=== PATIENT | male | born 1955 | race Caucasian/White ===

== ENCOUNTER → 2017-04-11 | Outpatient (CLI) | payer BC ==
[~2017-04-11] MED LIST: Co Q10 PO; LORA-741 PO; LPR50 PO; MULT-506 PO; NUTR1CAP PO; SIMV20TA5 PO; XRL10 PO
--- NOTE | 2017-04-11 09:20 | DIAGNOSTIC IMAGING REPORT ---
KUB CLINICAL HISTORY: 62 years-old Male presenting with N20.0 [id number], history of renal stones, follow-up. TECHNIQUE: Single supine view of the abdomen was obtained. COMPARISON: 03/17/2015. FINDINGS: Allowing for the presence of gas and stool, no renal calculi. No calcifications along the courses of the ureters. Single left hemipelvis phlebolith unchanged. Nonobstructive bowel gas pattern. No evidence of free intraperitoneal gas, pneumatosis, or portal venous gas. Osseous structures normal. IMPRESSION: 1. No radiographic evidence of nephrolithiasis. Electronically signed by: Yogesh Bailey M.D. 04/11/2017 9:19 AM Dictated Date/Time: 04/11/2017 9:18 AM
== END | disposition home or self-care (01) ==
LOC: C.LAB 08:33
PROVIDERS: ATTEND Urology
DX: N20.0 Calculus of kidney (principal); N40.3 Nodular prostate with lower urinary tract symptoms

== ENCOUNTER 2024-07-30 08:10 | Observation (INO) ==
--- NOTE | 2024-07-03 09:10 | PAT Medication Instructions ---
Medication Instructions Date of Service July 03, 2024 Home Medications Profocus 1 tab PO QAM Prostate Plus 1 tab PO QAM cholecalciferol (vitamin D3) 25 mcg (1,000 unit) capsule (Vitamin D3) 25 mcg PO BID coQ10 (ubiquinol) 200 mg capsule 200 mg PO QPM lisinopril 20 mg-hydrochlorothiazide 12.5 mg tablet 1 tab PO QAM metoprolol succinate 25 mg tablet,extended release 24 hr 25 mg PO QPM metoprolol succinate 50 mg capsule sprinkle, ext. release 24 hr 50 mg PO QAM rivaroxaban 20 mg tablet (Xarelto) 20 mg PO PM simvastatin 20 mg tablet 20 mg PO PM vitamin A-vitamin C-vit E-min tablet 1 tab PO QAM vitamin B complex 1 cap PO QAM biotin 10,000 mcg capsule 10,000 mcg PO BID docosahexaenoic acid (dha)-epa capsule 1 cap PO BID melatonin 5 mg tablet 5 mg PO HS PRN ASK your prescriber and surgeon rivaroxaban 20 mg tablet (Xarelto) 20 mg PO PM(in order for spinal or epidural anesthesia, Xarelto needs to be stopped 72 hours/3 days before surgery. Please check if okay with doctor that prescribes this to you) STOP taking 2 weeks before surgery (or as soon as possible if surgery is within 2 weeks) Profocus 1 tab PO QAM Prostate Plus 1 tab PO QAM coQ10 (ubiquinol) 200 mg capsule 200 mg PO QPM vitamin A-vitamin C-vit E-min tablet 1 tab PO QAM biotin 10,000 mcg capsule 10,000 mcg PO BID docosahexaenoic acid (dha)-epa capsule 1 cap PO BID DO NOT take the morning of surgery cholecalciferol (vitamin D3) 25 mcg (1,000 unit) capsule (Vitamin D3) 25 mcg PO BID lisinopril 20 mg-hydrochlorothiazide 12.5 mg tablet 1 tab PO QAM vitamin B complex 1 cap PO QAM Take morning of surgery With a small sip of water, OTHERWISE NOTHING TO EAT OR DRINK AFTER MIDNIGHT: metoprolol succinate 50 mg capsule sprinkle, ext. release 24 hr 50 mg PO QAM Take evening before surgery cholecalciferol (vitamin D3) 25 mcg (1,000 unit) capsule (Vitamin D3) 25 mcg PO BID metoprolol succinate 25 mg tablet,extended release 24 hr 25 mg PO QPM simvastatin 20 mg tablet 20 mg PO PM melatonin 5 mg tablet 5 mg PO HS PRN(if needed) Other Notes If you have any questions please call us at [phone] or [phone] or [phone] or [phone]
--- NOTE | 2024-07-10 09:11 | Anesthesiology Consultation ---
Date of Service July 10, 2024 Assessment & Plan (1) Encounter for pre-operative examination: - Infectious disease screening: Per assessment on 07/10/24- No known recent infectious disease contacts or current infectious disease symptoms. - Outpatient joint assessment: Pt currently scheduled for inpatient pathway. If surgeon requests review for outpatient joint pathway, patient is not recommmended candidate for outpatient joint program from anesthesia standpoint based on available information. - Cardiology visit (06/25/24): "Preoperative Cardiovascular Risk Assessment.. Scheduled for right knee total replacement on July 30, 2023, with Dr. Brandt at [facility]. Hypertension, atrial fibrillation, and dyslipidemia are well- controlled. Recent stress test and echocardiogram were normal. No current chest pain, dyspnea, palpitations, dizziness, or peripheral edema. Discussed the risk of atrial fibrillation during surgery and the importance of taking metoprolol on the day of surgery. Informed consent obtained regarding holding Xarelto for three days before surgery and resuming postoperatively.. Hold Xarelto for three days before surgery.. Continue metoprolol, take the morning of the procedure.. Atrial Fibrillation.. No recent episodes. On metoprolol and Xarelto for rate control and anticoagulation. Discussed the risk of atrial fibrillation during surgery and the importance of taking metoprolol on the day of surgery.. Continue metoprolol.. Hold Xarelto for three days before surgery" - PCP visit (06/30/24): "Has upcoming knee surgery with Dr Brandt at [facility].. Has pre op visit at [facility] in early July. Already did cardiac pre op.. Feels he has good plan for post op/recovery period.. Reviewed labs from last month - overall they look good. Prediabetes has improved to 5.8%. Following with urology for kidney stone which has resolved and BPH symptoms have improved.. Stools are regular, not dark or tarry.. Denies any cardiopulmonary symptoms" Chart Review Chart Review: Acceptable Risk for Surgery and Patient seen in Pre Admission Nguyen idaliag Teaching & Discussion Pre-Anesthesia Teaching/Discussion Notes: Instructed NPO after midnight before surgery,except medications with 15 cc of water. Medication instructions provided according to the PAT guidelines. History Surgery Operation Date: 07/30/24 08:50 Proposed Procedures p Right Total Knee Arthroplasty - Chauncey Brandt MD Height/Weight Height: 5 ft 11 in Weight: 105.1 kg Allergies Allergy/AdvReac Type Severity Reaction Status Date / Time Penicillins Allergy Unknown As child, Verified 07/10/24 09:17 possible Medications Home Medications Medication Instructions Recorded Confirmed Last Taken Profocus 1 tab PO QAM 07/24/22 07/02/24 09/24/22 Prostate Plus 1 tab PO QAM 07/24/22 07/02/24 09/24/22 cholecalciferol (vitamin D3) 25 25 mcg PO BID 07/24/22 07/02/24 09/24/22 mcg (1,000 unit) capsule (Vitamin D3) coQ10 (ubiquinol) 200 mg capsule 200 mg PO QPM 07/24/22 07/02/24 09/24/22 lisinopril 20 1 tab PO QAM 07/24/22 07/02/24 09/24/22 mg-hydrochlorothiazide 12.5 mg tablet metoprolol succinate 25 mg 25 mg PO QPM 07/24/22 07/02/24 09/24/22 tablet,extended release 24 hr metoprolol succinate 50 mg capsule 50 mg PO QAM 07/24/22 07/02/24 09/25/22 sprinkle, ext. release 24 hr rivaroxaban 20 mg tablet (Xarelto) 20 mg PO PM 07/24/22 07/02/24 09/24/22 simvastatin 20 mg tablet 20 mg PO PM 07/24/22 07/02/24 09/24/22 vitamin A-vitamin C-vit E-min 1 tab PO QAM 07/24/22 07/02/24 09/24/22 tablet vitamin B complex 1 cap PO QAM 07/24/22 07/02/24 09/24/22 biotin 10,000 mcg capsule 10,000 mcg PO BID 07/02/24 07/02/24 Unknown docosahexaenoic acid (dha)-epa 1 cap PO BID 07/02/24 07/02/24 Unknown capsule melatonin 5 mg tablet 5 mg PO HS PRN Sleep 07/02/24 07/02/24 Unknown Cranberry Gummy 1 gummy PO DAILY 07/10/24 Unknown Probiotic 1 cap PO BID 07/10/24 07/10/24 Unknown Past Medical History Medical History Atrial fibrillation Follows with Dr. Kopinski Taking Xarelto BPH (benign prostatic hyperplasia) Degenerative arthritis of knee, bilateral History of kidney stones History of migraine HLD (hyperlipidemia) HTN (hypertension) Osteoarthritis Scoliosis Exercise / Class Metabolic Activity II 4-5 Yardwork/Stairs/Walk up hill (one FS: No CP, no SOB) Past Family History Family History Other No family history of adverse response to anesthesia Past Surgical History Surgical History History of cataract surgery R/L History of colonoscopy History of cystoscopy with stone extraction History of removal of cyst History of wisdom tooth extraction Past Anesthesia History No Hx of Anesthesia Complications and No Family Hx of Anesthesia Complications History of PONV No Hx of PONV and Hx of Motion Sickness Social History Smoking Status: Former smoker Do You Dip or Chew Tobacco: No Smoking End Date: Quit 1970s Hx Alcohol Use: No Hx Substance Use: No substance use type: does not use Review of Systems Patient denies chest pain, shortness of breath, dyspnea on exertion, fever, chills, cough, wheezing, palpitations. Physical Exam Vital Signs BP 146/85 P 55 TEMP 98.2 SP02 96%RA RESP 18 Physical Full cervical extension range of motion. Full TMJ range of motion. TMD > 3.5 finger breaths Mallampati Score II Dentition: intact, current upper implants (final implant to be done 07/27 prior to surgery- dentist aware of surgery timing and gave approval, patient advised to make surgeon's office aware as well) Lungs: clear throughout to auscultation Cardiac: regular rate and rhythm, no murmurs noted Spine: normal Carotid arteries: negative bruit Extremities: no LE edema Lab Results Anesthesia Preop Results Results Anesthesia Widget: WBC 6.82 K/ul (4.8-10.8) 07/10/24 Hgb 14.9 g/dl (14.0-18.0) 07/10/24 Hct 44.1 % (42.0-52.0) 07/10/24 Plt 173 K/uL (130-400) 07/10/24 Na 139 mmol/L (136-145) 07/10/24 K 3.6 mmol/L (3.5-5.1) 07/10/24 Cl 105 mmol/L (98-107) 07/10/24 CO2 29 mmol/L (21-32) 07/10/24 BUN 14 mg/dl (6-23) 07/10/24 Creat 0.76 mg/dl (0.6-1.4) 07/10/24 Glucose Level 103 mg/dl (70-99(Fasting)) H 07/10/24 PT 13.0 Seconds (9.0-12.0) H 07/10/24 PTT 42 Seconds (21-31) H 07/10/24 INR 1.2 (0.9-1.1) H 07/10/24 Blood Type O Positive 07/10/24 Antibody Screen NEGATIVE 07/10/24 Testing Laboratory Results *Elevated coags- patient taking Xarelto* Electrocardiogram Date: 06/25/24 SB at 58bpm. NS TWA. Chest X-Ray Date: 07/13/24 FINDINGS: No lines and tubes are seen. The cardiomediastinal silhouette is normal. The lungs are clear. No evidence of pleural effusion or pneumothorax. IMPRESSION: No acute chest disease. Echocardiogram Date: 02/13/23 LVEF 60-64%. LV wall motion is normal. Mildly increased concentric LV wall thickness. Mild LAE. Grade 1 diastolic dysfunction. No significant valvular disease. Stress Test Date: 11/08/23 Type: nuclear Gated SPECT imaging reveals normal myocardial thickening and wall motion. LVEF greater than 65%. Lexiscan nuclear cardiac stress test negative for ischemia.
--- NOTE | 2024-07-25 10:09 | History & Physical Report ---
Date of Service July 25, 2024 Assessment & Plan (1) Degenerative arthritis of knee, bilateral: 69-year-old male with advanced bilateral knee arthritis right side more symptomatic than left. Is failed conservative care and like to go ahead and proceed with knee replacement on the right side. He was planning on having this done at [facility] but they have canceled and not rescheduled. Plan: We will proceed with a right knee Medical fever explained and he understands. Informed consent obtained. Will need to hold his Xarelto 3 days preop. He is planned to be discharged to home. He does live by himself but will have a friend or family member stay with him. Will use Xarelto for DVT prophylaxis. (2) Dyslipidemia: (3) Hypertension: History of Present Illness Chief Complaint: . Bilateral knee pain discomfort right side greater than the left. Primary Care Provider: Bakari Jones DO . 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 Got a long history of bilateral knee pain discomfort of it has been managed by the [facility] over the years. He was planning to have his knee fixed by Dr. Ann in [place] but apparently he had to leave [facility] for some family issues. Has had extensive conservative treatment including injections which have become less successful. He is ready to proceed with right knee replacement. Allergies Allergy/AdvReac Type Severity Reaction Status Date / Time Penicillins Allergy Unknown As child, Verified 07/10/24 09:17 possible Home Medications Medication Instructions Recorded Confirmed Type Profocus 1 tab PO QAM 07/24/22 07/02/24 History Prostate Plus 1 tab PO QAM 07/24/22 07/02/24 History cholecalciferol (vitamin D3) 25 25 mcg PO BID 07/24/22 07/02/24 History mcg (1,000 unit) capsule (Vitamin D3) coQ10 (ubiquinol) 200 mg capsule 200 mg PO QPM 07/24/22 07/02/24 History lisinopril 20 1 tab PO QAM 07/24/22 07/02/24 History mg-hydrochlorothiazide 12.5 mg tablet metoprolol succinate 25 mg 25 mg PO QPM 07/24/22 07/02/24 History tablet,extended release 24 hr metoprolol succinate 50 mg capsule 50 mg PO QAM 07/24/22 07/02/24 History sprinkle, ext. release 24 hr rivaroxaban 20 mg tablet (Xarelto) 20 mg PO PM 07/24/22 07/02/24 History simvastatin 20 mg tablet 20 mg PO PM 07/24/22 07/02/24 History vitamin A-vitamin C-vit E-min 1 tab PO QAM 07/24/22 07/02/24 History tablet vitamin B complex 1 cap PO QAM 07/24/22 07/02/24 History biotin 10,000 mcg capsule 10,000 mcg PO BID 07/02/24 07/02/24 History docosahexaenoic acid (dha)-epa 1 cap PO BID 07/02/24 07/02/24 History capsule melatonin 5 mg tablet 5 mg PO HS PRN Sleep 07/02/24 07/02/24 History Cranberry Gummy 1 gummy PO DAILY 07/10/24 History Probiotic 1 cap PO BID 07/10/24 07/10/24 History Past Med/Surg History Problem List Degenerative arthritis of knee, bilateral Encounter for pre-operative examination Hypokalemia (Acute) Benign prostatic hyperplasia (Chronic) Dyslipidemia (Chronic) Hypertension (Chronic) Medical History Degenerative arthritis of knee, bilateral BPH (benign prostatic hyperplasia) Osteoarthritis Scoliosis History of kidney stones History of migraine HLD (hyperlipidemia) HTN (hypertension) Atrial fibrillation Follows with Dr. Merritt Taking Xarelto Surgical History History of cataract surgery R/L History of wisdom tooth extraction History of removal of cyst History of cystoscopy with stone extraction History of colonoscopy Family History Other No family history of adverse response to anesthesia Social History Smoking Status: Former smoker Tobacco Type: Cigarettes Second Hand Exposure: Yes (hx); Do You Dip or Chew Tobacco: No; Hx Alcohol Use: No Hx Substance Use: No Preferred Language: Kazakh Communication Ability: Effective Parachute Accessories Attacher Required: No Beliefs That Will Affect Care: None Current Living Situation: Alone Feels Safe at Home: Yes Assistive Devices: None Review of Systems All systems reviewed & are unremarkable except as noted in HPI & below. Physical Exam . Physical examination was a pleasant middle-age male. Exam pretty good health. Examination both [id number] patient ambulates independently. Examination of the right knee reveals some bony prophy. Good varus alignment to his knee. Small knee effusion. He is tender over the medial joint line. Range of motion about 5-1 20. No instability. Examination left knee reveals a similar varus alignment. Mild tenderness. Small knee effusion. Range of motion 5-1 25. No instability. No pain with hip motion. Constitutional WD/WN, vitals as above Neck trachea midline, no thyromegaly Respiratory normal respiratory effort, lungs clear to auscultation Cardiovascular RRR, no murmur, no edema Gastrointestinal (Abdomen) normal bowel sounds, soft, nontender, no hepatosplenomegaly Results & Data Results & Data Laboratory Results . X-rays of the right knee reviewed. Shows advanced right knee DJD. He is got disease in all 3 compartments. He is got similar findings in his left knee. Diagnostic Findings . PG Care Time/CCT Total # of Minutes Spent Total Time Spent with Patient: Total time spent is greater than 50% in coordination of care (as documented) at patient's floor/unit and/or counseling patient: Coding Level of Care Code None Diagnoses Degenerative arthritis of knee, bilateral M17.0 Dyslipidemia E78.5 Hypertension I10
[~2024-07-30 08:10] MED LIST changes: +BUPIVACAINE 0.5 % 5 MG/1 ML PF 10ML VIAL ONE; -Co Q10 PO; -LORA-741 PO; -LPR50 PO; -MULT-506 PO; -NUTR1CAP PO; +ROPIVACAINE 0.5% 5 MG/ML 30 ML VIAL ONE; -SIMV20TA5 PO; -XRL10 PO
--- NOTE | 2024-07-30 08:52 | History & Physical Bridge Note ---
Date of Service July 30, 2024 History & Physical Bridge Note I have examined the patient, reviewed the History & Physical and in the interval since the performance of the History & Physical I have noted the following changes of clinical significance: no changes noted
[2024-07-30] MEDS: ACETAMINOPHEN 500 MG TAB PO SCH ×2 (09:04→16:23)
[2024-07-30] MEDS: LR 500ML BOLUS, THEN 15ML/HR IV SCH (09:04)
[2024-07-30] MEDS: CeleBREX 200 MG CAP PO SCH (09:04)
[2024-07-30] MEDS: FAMOTIDINE 20 MG TAB PO SCH (09:05)
[2024-07-30] MEDS: LR 60ML/HR IV SCH (09:05)
[2024-07-30] MEDS: METOCLOPRAMIDE HCL 10 MG TABLET PO SCH (09:05)
[2024-07-30] MEDS: dexAMETHasone**PF** 10 MG/ML VIAL IV SCH (09:05)
[2024-07-30] MEDS ORDERED: PROPOFOL IV EMULSION 10 MG/ML 20 ML VIAL IV ONE (09:38)
[2024-07-30] MEDS ORDERED: LIDOCAINE 2% 2 ML VIAL/AMP(20MG/ML) INFIL ONE (09:38)
[2024-07-30] MEDS ORDERED: MIDAZOLAM HCL 1 MG/ML 2ML VIAL ONE ×2 (09:39→10:58)
[2024-07-30] MEDS ORDERED: PHENYLEPHRINE 100MCG/ML 5ML SYR ONE (09:45)
[2024-07-30] MEDS: ceFAZolin 2000MG 2,000 MG/15 ML SYR IV SCH ×2 (10:37→17:14)
[2024-07-30] MEDS ORDERED: HYDROmorphone INJ 2 MG/ML SYR/VIAL IV PRN (10:40)
[2024-07-30] MEDS ORDERED: ATROPINE SULFATE 0.1 MG/ML 10ML SYR IV PRN (10:40)
[2024-07-30] MEDS ORDERED: ePHEDrine sulfate 50 MG/ML AMP IV PRN (10:40)
[2024-07-30] MEDS ORDERED: PROMETHAZINE HCL 6.25 MG in SODIUM CHLORIDE 0.9% 50 ML IV PRN (10:40)
[2024-07-30] MEDS: ORTHO JOINT ANESTHETIC ONE (11:09)
[2024-07-30] MEDS: ROPIV 0.5% 246mg, Ketorolac 30mg, EPINEPHrine 0.5mg in NSS INFIL SCH (11:09)
[2024-07-30] MEDS: TRANEXAMIC ACID 1,000 MG **IV Intra-op IV SCH (11:24)
--- NOTE | 2024-07-30 12:19 | Operative Report ---
PG Post Operative Report Pre & Post Diagnosis Operation Date: 07/30/24 10:40 Pre-Op Diagnosis: Right Knee Degenerative Joint Disease Post-Op Diagnosis: Right Knee Degenerative Joint Disease I identified the patient and participated in the time-out.: Yes Procedure Operation Date: 07/30/24 10:40 Actual Procedures p Right Total Knee Arthroplasty(Right) - Chauncey Brandt MD Surgeon Chauncey Brandt MD [employer] Operator Bon Aguilar PA-C Estimated Blood Loss 50 Findings Consistent with Post-Op Diagnosis Operative findings revealed extensive 3 compartment degenerative change with significant erosions in all 3 compartments. Moderate-sized joint effusion. A moderate-sized level of synovitis. Specimens Right knee sent for pathology. Anesthesia Type Spinal MAC Complications none Disposition Accompanied Patient To Recovery: No Indications The patient is a 69-year-old gentleman said a fairly long history of gradual progressive increasing pain and discomfort in both knees. He failed conservative treatment over the years. His right knee was bothering more than the left. X-rays show advanced bilateral knee arthritis. He elected proceed with right total knee arthroplasty. Description of Procedure Operative implants consist of: 1. Biomet Vanguard size 70 right posterior stabilized femoral component. 2. Biomet size 79 tibial tray. 3. 10 mm posterior stabilized polyethylene insert. 4. 34 x 8-1/2 all poly patella. The patient was taken the op room, identified, placed on the operating table in the supine position. All contact areas were appropriately padded. IV antibiotics fibra anesthesia team. Spinal anesthetic and adductor canal block had been Weida in the holding area. Right thigh tourniquet was then placed. The right lower extremity was then prepped and draped in usual sterile fashion. The right leg was elevated and exsanguinated with use of an Esmarch and a turn was placed at 300 mmHg. An anterior approach of the right knee was then performed to longitudinal incision centered over the patella. Sharp dissection was Through subcutaneous tissue down the extensor mechanism. A medial parapatellar arthrotomy incision was made. Some subperiosteal dissection was carried out medially. The fat pad was dissected from Neath patella tendon. The lateral patellofemoral ligament was released. Patella subluxated laterally and the knee was flexed. The osteophytes taken off distal femur. The ACL and PCL were then released from distal femur the tibia subluxated anteriorly. The external tibial alignment jig was then placed on the anterior face of the tibia and adjusted 14 mm medially. Proximal tibial cut was made remove out of millimeter or 2 of bone from most deficient aspect the medial side. Tibia sized to a size 79. Attention drawn the femur. The distal femur stem with a sharp drill. Intramedullary canal was suction. A right 6 degree valgus cutting guide was placed. The distal femoral cutting block was pinned in place. Distal femoral cut was made to take an additional 3 mm of bone off distal femur. The femur was then sized to a size 70. The AP cutting block was pinned parallel to the epicondylar axis which was 3 degrees of external rotation. The anterior cut, anterior chamfer, posterior cut, posterior chamfer cuts were made. The box cutting guide was placed and adjusted slightly laterally. The box cut was made. The knee was flexed. The remnants of the medial and lateral menisci were excised. The osteophytes taken off the posterior aspect the femur. Trial femoral component was placed. The tibial tray was pinned in Kadi external rotation and the drill and stem punch were used. Defect in proximal tibia for the tibial tray. The knee was then trialed and the 10 mm insert fit most appropriately. Attention was then drawn to the patella. The patella was cleaned of all soft tissue. Patella thickness measured 24 mm in thickness was cut down to 14. Was sized to a size 34 patella. The lug holes were drilled for 34 patella. The lateral osteophytes removed. Patella button was placed. Knee was taken through range of motion and the patella tracked nicely with no thumbs test. Attention was then drawn toward placement permanent components. All trial components were removed. Bone plug was placed in the distal femur limit blood loss. A double batch Palacos G cement was mixed. Biomet Vanguard size 70 right posterior stabilized femoral component, size 79 tibial tray, a 10 mm posterior Byce polyethylene insert, and a 34 x 8-1/2 all poly patella then cemented in place. The knee was brought out into full extension till cement hardened. Final cement check was then performed. Pericapsular tissue were then injected with 100 cc of Ortho mix. Patient did receive 1 g tranexamic acid. The tourniquet was then let down for final tourniquet time of 56 minutes. Hemostasis surgeries electrocautery. Extensor Meclomen closed with combination 1 PDS suture and a #1 Vicryl suture in a [id number] fashion. Extensor Meclomen checked found to be intact. Subcutaneous tissue then closed with 2 Dexon suture in a buried interrupted fashion skin was closed skin dexter. Leg was then cleaned and dried and sterile dressed with Xeroform, 4 fours, sterile cast padding, Bill bandage were applied. Patient then transferred to the recovery in stable condition. Patient tolerated procedure well and there were no complications. Bon Aguilar, my physician fast food sales assistant, was present for the entire procedure. His assistance was essential and required for appropriate patient positioning, prepping and draping, surgical exposure, performing the technical details of the operation, placement the implants, closure of the wound, and placement of the sterile bandage. I attest to the content of the Intraoperative Record and any orders documented therein. Any exceptions are noted below.
[2024-07-30] MEDS ORDERED: MAGNESIUM HYDROXIDE SUSP 30 ML UDC PO PRN (12:20)
[2024-07-30] MEDS ORDERED: METOCLOPRAMIDE HCL INJ 5 MG/ML 2 ML VIAL IV PRN (12:20)
[2024-07-30] MEDS ORDERED: ALUMINUM/MAGNESIUM SUSP 30 ML UDC PO PRN (12:20)
[2024-07-30] MEDS ORDERED: HYDROmorphone INJ 0.5 MG/0.5 ML SYR IV PRN (12:20)
[2024-07-30] MEDS ORDERED: NALOXONE HCL 0.4 MG/1 ML VIAL/CARP IV PRN (12:20)
[2024-07-30] MEDS ORDERED: oxyCODONE HCL IR 5 MG TAB (IMMEDIATE RELEASE) PO PRN ×2 (12:20→16:11)
[2024-07-30] MEDS ORDERED: ONDANSETRON INJ 2 MG/ML 2 ML VIAL IV PRN (12:20)
[2024-07-30] MEDS ORDERED: bisacodyL 10 MG SUPP PR PRN (12:20)
[2024-07-30] MEDS ORDERED: TAMSULOSIN HCL 0.4 MG CAP PO PRN (12:20)
--- NOTE | 2024-07-30 12:41 | XRay Report ---
XR knee RT 1 or 2V routine HISTORY: 69 years-old Male Surgical Post Op right knee arthroplasty COMPARISON: Knee radiographs 05/25/2024 TECHNIQUE: 2 views of the right knee FINDINGS: Total joint arthroplasty with patellar resurfacing. Anterior midline skin dexter are noted along wit h expected postoperative soft tissue swelling with deep tissue air. No acute fracture or unexpected o paque foreign body. IMPRESSION: Total joint arthroplasty with expected postoperative changes. ACT 112: Negative or not required by law. The above report was generated using voice recognition software. It may contain grammatical, syntax o r spelling errors. Electronically signed by: Dayron Villa M.D. 07/30/2024 12:40 PM
[2024-07-30] MEDS ORDERED: ACETAMINOPHEN 500 MG TAB PO SCH (16:11)
[2024-07-30] MEDS: KETOROLAC TROMETHAMINE 15 MG/ML VIAL IV SCH ×2 (16:24→22:48)
[2024-07-30] MEDS ORDERED: MELATONIN 3 MG TAB PO PRN (16:26)
--- NOTE | 2024-07-30 16:53 | Anesthesiology Progress Note ---
Date of Service July 30, 2024 Anesthesia Post Procedure Vital Signs Vital Signs: Temp Pulse Pulse Resp BP Pulse Ox O2 Del Method 07/30/24 16:13 36.3 C L 92 H 20 149/69 H 95 Room Air 07/30/24 15:56 93 H 18 110/72 93 Room Air 07/30/24 15:45 36.4 C L 90 20 120/72 92 Room Air 07/30/24 15:35 89 19 116/68 94 Room Air 07/30/24 15:25 88 14 115/70 95 Room Air 07/30/24 15:15 88 20 120/69 92 Room Air 07/30/24 15:05 89 19 137/70 95 Room Air 07/30/24 14:55 86 16 129/72 95 Room Air 07/30/24 14:45 86 18 112/66 95 Room Air 07/30/24 14:35 88 19 120/68 95 Room Air 07/30/24 14:25 77 12 126/69 94 Room Air 07/30/24 14:15 80 17 109/65 96 Room Air 07/30/24 14:05 78 13 110/66 96 Room Air 07/30/24 13:55 82 18 112/64 98 Room Air 07/30/24 13:45 77 16 117/62 94 Room Air 07/30/24 13:35 78 15 115/64 96 Room Air 07/30/24 13:25 78 18 106/63 93 Room Air 07/30/24 13:15 81 17 108/61 94 Room Air 07/30/24 13:05 79 17 109/61 94 Room Air 07/30/24 12:55 76 17 106/59 L 94 Room Air 07/30/24 12:45 81 16 110/57 L 96 Room Air 07/30/24 12:35 79 12 102/57 L 94 Oxymask 07/30/24 12:25 81 13 105/54 L 97 Oxymask 07/30/24 12:16 36.1 C L 81 20 99/53 L 97 Oxymask 07/30/24 08:55 36.7 C 64 20 130/78 96 Room Air O2 Flow Rate 07/30/24 16:13 07/30/24 15:56 0 07/30/24 15:45 0 07/30/24 15:35 0 07/30/24 15:25 0 07/30/24 15:15 0 07/30/24 15:05 0 07/30/24 14:55 0 07/30/24 14:45 0 07/30/24 14:35 0 07/30/24 14:25 0 07/30/24 14:15 0 07/30/24 14:05 0 07/30/24 13:55 0 07/30/24 13:45 0 07/30/24 13:35 0 07/30/24 13:25 0 07/30/24 13:15 07/30/24 13:05 07/30/24 12:55 0 07/30/24 12:45 0 07/30/24 12:35 4 07/30/24 12:25 4 07/30/24 12:16 8 07/30/24 08:55 Transfer of Care Handoff Completed per policy Notes Mental Status: alert / awake / arousable Patient Amnestic to Procedure: Yes Nausea / Vomiting: adequately controlled Pain: adequately controlled Airway Patency, RR, SpO2: stable & adequate BP & HR: stable & adequate Hydration State: stable & adequate Neuraxial Anesthesia: was administered and sensory block is resolving Anesthetic Complications: no major complications apparent and Pt Satisfied with anesthetic care
[2024-07-30] MEDS: ASCORBIC ACID 500 MG TAB PO SCH (17:14)
[2024-07-30] MEDS: TRANEXAMIC ACID / 0.7% NACL 1,000 MG/100 ML BAG IV SCH (17:17)
[2024-07-30] MEDS ORDERED: Nursing to Pharmacy Communication SCH (18:15)
[2024-07-30 19:31] VITALS: RESP 16
[2024-07-30] MEDS: CHOLECALCIFEROL 25 MCG (1000 UNITS) TAB PO SCH (20:12)
[2024-07-30] MEDS: ADVANCED PROBIOTIC 625 MG CAPSULE PO SCH (20:12)
[2024-07-30] MEDS: METOPROLOL SUCC 25MG EXT REL TAB PO SCH (20:12)
[2024-07-30] MEDS: OMEGA-3 (PURIFIED FISH OIL) 1 GM CAP PO SCH (20:12)
[2024-07-30] MEDS: DOCUSATE SODIUM 100 MG CAP PO SCH (20:12)
[2024-07-30] MEDS: SIMVASTATIN 20 MG TAB PO SCH (20:13)
[2024-07-30] MEDS: SENNA 8.6 MG TAB PO SCH (20:13)
[2024-07-30] MEDS ORDERED: NON-FORMULARY MEDICATION (Coq10 (Ubiquinol) 200 mg Capsule) PO SCH (21:00)
[2024-07-30] MEDS ORDERED: SENNA 8.6 MG TAB PO SCH (21:00)
--- NOTE | 2024-07-31 07:13 | Orthopedic Progress Note ---
Date of Service July 31, 2024 Assessment & Plan (1) Status post right knee replacement: Plan: 69-year-old gentleman postop day 1 from a right knee replacement doing pretty well. Pains controlled. He is neurologically intact. Plan: 1. DVT prophylaxis including thigh-high teds, SCDs, and start him back on his Eliquis today. 2. PT/OT. Weight-bear as top. Right total knee protocol. 3. Pain control. Doing well with current pain regimen. 4. Disposition. Plan is to discharge to home. He is can to go stay with [place] friend [place] and do outpatient therapy. I think they are going to do home health for the first 2 weeks. (2) Hypertension: (3) Dyslipidemia: (4) Atrial fibrillation: Admission and Anticipated Discharge Date Admission Date: July 30, 2024 Subjective 69-year-old gentleman postop day 1 from right knee replacement. He is doing quite well this morning. Pains controlled. A good night. No chest pain or shortness of breath. Not feeling dizzy or lightheaded. Physical Exam Physical Exam: Physical examination is a pleasant middle-age male. Lying bed looks pretty comfortable. Examination of the right leg reveals leg to be well aligned. Dressings clean dry and intact. He can dorsiflex and plantarflex his foot appropriately. He is neurologically intact. Respiratory: normal respiratory effort, lungs clear to auscultation Cardiovascular: RRR, no murmur, no edema Gastrointestinal (Abdomen): normal bowel sounds, soft, nontender, no hepatosplenomegaly Results & Data Vital Signs (Past 12 Hours) Vital Signs Temp Pulse Resp BP Pulse Ox O2 Del Method 07/31/24 03:12 36.5 C 71 16 119/58 L 95 Room Air 07/30/24 23:21 36.6 C 87 16 122/63 93 Room Air 07/30/24 19:30 36.9 C 96 H 16 114/68 92 Room Air Laboratory Results Labs are pending.
[2024-07-31] MEDS: TAMSULOSIN HCL 0.4 MG CAP PO SCH (07:29)
[2024-07-31] MEDS: VITAMIN B COMPLEX TAB PO SCH (07:29)
[2024-07-31] MEDS: METOPROLOL SUCC 50MG EXT REL TAB PO SCH (07:29)
[2024-07-31] MEDS: LISINOPRIL/HCTZ 20/12.5MG 1 TAB TAB PO SCH (07:30)
[2024-07-31] MEDS: MULTIVITAMIN TAB PO SCH (07:31)
[2024-07-31] MEDS: dexAMETHasone 10 MG in SYRINGE 0 ML IV SCH (07:31)
[2024-07-31 08:15] LABS: Hematocrit (blood only) 38.2 % (42.0-52.0); Hemoglobin 13.2 g/dl (14.0-18.0); Mean Corpuscular Hemoglobin 29.4 pg (25.0-34.0); Mean Corpuscular Hgb Conc 34.6 g/dL (32.0-36.0); Mean Corpuscular Volume 85.1 fL (80.0-100.0); Mean Platelet Volume 10.9 fL (9.4-12.4); Platelet Count 166 K/uL (130-400); RDW Coefficient of Variation 13.9 % (11.5-14.5); RDW Standard Deviation 43.2 fL (36.4-46.3); Red Blood Count 4.49 M/uL (4.70-6.10); White Blood Count 17.67 K/ul (4.8-10.8)
[2024-07-31 08:24] LABS: BUN Creatinine Ratio 33.3 (10-20); Calcium 9.8 mg/dl (8.6-10.3); Creatinine Clr Calc Pharmacy 95.6 ml/min; Potassium 3.9 mmol/L (3.5-5.1)
[2024-07-31] MEDS ORDERED: PROSTATE PLUS PO SCH (09:00)
[2024-07-31] MEDS ORDERED: [UNRECOGNIZED DRUG - OTHER] PO SCH (09:00)
[2024-07-31] MEDS ORDERED: [UNRECOGNIZED DRUG - OTHER] PO SCH (09:00)
[2024-07-31] MEDS ORDERED: NON-FORMULARY MEDICATION (Vitamin A-Vitamin C-Vit E-Min Tablet) PO SCH (09:00)
[2024-07-31 10:34] VITALS: BP 142/56; PULSE 71; TEMP 98.1; O2SAT 95
[2024-07-31] MEDS ORDERED: RIVAROXABAN 10 MG TABLET PO SCH (13:00)
--- OUTSIDE RECORDS SUMMARY | 2024-07-31 13:48 | External Medical Summary | Summary of Care ---
Author Name Unknown Organization [facility] Address [address] [place] [address] Phone [phone] Care Team Providers Care Associate Professor Of Physics Name Role Phone Bakari Jones Primary Care Provider Encounter Details Date Type Department Care Team (Late st Contact Info) Description 07/28/2024 Population Health External Data Unspecified Department Allergies Active Allergy Reactions Criticality Noted Date Comments Penicillins 03/09/1998 Patient states he passed out but not sure if actually allergic documented as of this encounter (statuses as of 07/28/2024) Medications PROSTATE PO TABS None Entered Active COQ10 200 MG PO CAPS 1 capsule daily 4 Active B Complex Vitamins (VITAMIN-B COMPLEX) Tablet Take 1 Tablet by mouth in the morning. Active Turmeric 500 MG Capsule Take 1 Capsule by mouth in the morning. Active Triamcinolone Acetonide 0.1 % External Ointment (Aristocort) Apply topically to affected area 2 times a day. To affected area of the hands 60 g 5 1 Active Total Memory & Focus Formula Oral Tablet Take by mouth. Act carol Ocuvite Extra Oral Tablet Take by mouth. Act carol Melatonin 2.5 MG Oral Tablet Chewable Take 1 Tablet by mouth at bedtime. Active [place] Oil Oral Capsule Take by mouth. Activ e LORazepam 0.5 MG Oral Tablet (Ativan)Indicatio ns:Anxiety state TAKE 1 TABLET BY MOUTH TWICE A DAY NEEDED FOR ANXIETY 30 Tablet 1 3 Active Metoprolol Succinate ER 25 MG Oral Tablet Extended Release 24 Hour (toPROL XL)Indications:Pa roxysmal atrial fibrillation (HCC),HTN, goal below 130/80 TAKE 1 TABLET BY MOUTH EVERY DAY IN THE EVENING 90 Tablet 3 4 Active Metoprolol Succinate ER 50 MG Oral Tablet Extended Release 24 Hour (toPROL XL)Indications:HT N, goal below 130/80,Paroxysmal atrial fibrillation (HCC) TAKE 1 TABLET BY MOUTH EVERY DAY 90 Tablet 3 4 Active Lisinopril-hydroC HLOROthiazide 20-12.5 MG Oral TabletIndications :HTN, goal below 130/80,Paroxysmal atrial fibrillation (HCC) TAKE 1 TABLET BY MOUTH EVERY DAY 90 Tablet 3 4 Active Simvastatin 20 MG Oral Tablet (Zocor)Indication s:Dyslipidemia, goal LDL below 100 TAKE 1 TABLET BY MOUTH EVERYDAY AT BEDTIME 90 Tablet 2 4 Active Xarelto 20 MG Oral Tablet (Rivaroxaban)Keli cations:Chronic atrial fibrillation (HCC),Renovascula r hypertension with goal blood pressure less than 140/90 TAKE 1 TABLET BY MOUTH EVERY DAY 90 Tablet 1 4 Active documented as of this encounter (statuses as of 07/28/2024) Active Problems Problem Noted Date Diagnosed Date Prediabetes 08/21/2021 Overview: Per Prediabetes protocol Localized osteoarthritis of knees, bilateral 04/2022 Paroxysmal atrial fibrillation 11/18/2018 Acute midline low back pain without sciatica Obesity, Class I, BMI 30.0-34.9 (see actual BMI) 12/21/2015 Dyslipidemia, goal LDL below 100 06/28/2015 Vertigo 08/19/2006 Headache 03/28/2006 Overview (09/28/2015): ICD-10 update of inactive term Migraine with aura 03/28/2006 BPH without obstruction/lower urinary tract symp toms 05/03/2005 DYSFUNCT EUSTACHIAN TUBE 10/20/2002 Chronic sinusitis 10/05/2002 Allergic rhinitis 05/19/2001 HTN, goal below 130/80 11/17/1999 Anxiety state 11/17/1999 Calculus of kidney documented as of this encounter (statuses as of 07/28/2024) Resolved Problems Problem Noted Date Diagnosed Date Resolved Date Atrial fibrillation 12/02/2013 08/03/19 23 Dyslipidemia, goal to be determined 06/16/2009 10/28/2013 Overview (06/16/2009): Per Lipid Taxonomy. ADVANCE DIRECTIVE INFORMATION 08/19/2006 05/11/2024 Overview (08/19/2006): Pt took booklet. BPH without obstruction/lowe r urinary tract symptoms 05/09/2006 08/05/2008 Overview (08/05/2008): Resolved per Duplicate Protocol #2. Reflux esophagitis 11/26/2001 0 PURE HYPERCHOLESTEROLEM 11/26/200106/07 Overview (06/16/2009): Per Lipid Taxonomy. Benign prostatic hyperplasia 05/19/2001 05/09/2006 Overview (04/08/2017): ICD-10 update of inactive term ICD-10 update of inactive term documented as of this encounter (statuses as of 07/28/2024) Immunizations Name Administration Dates Next Due COVID-19 mRNA, LNP-s, No Pre serve, 2-Dose Series (CorNova) 04/12/2021,08/20/2020,07/30/2020 COVID-19, MRNA-LNP, 24-25, P R, 30MCG/0.3ML, IM, 12YRS AND ABOVE (Pfizer-Comirnaty) 03/12/2024 Covid-19, Mrna, Lnp-s, Pf, B ivalent, 30 Mcg, IM, 12 yrs and above (Pfizer) 05/02/2022 PPD 05/08/2023,,07/30/2019,08/08,10/04/2015,10/28/2013,12/05/19 12,12/26/2009,01/06/2008,05/22/2007,0 01/29/2006 08/01/2019 Pneumococcal Conjugate Vacc, 13 Valent (Prevnar) 05/21/2019 Pneumococcal Polysaccharide PPV23 (Pneumovax) 09/16/2020 RSV Vac., Bivalent, Perfusio n F, Pf,0.5 Ml (Abrysvo) 05/10/2023 Seasonal Influenza Vac., MDV , IM, 0.5 mL (Fluzone) 04/21/2017,04/21/2015,04/30/2014,12/2010,05/06/2009,05/09/2006 Seasonal Influenza, MDCK, Tr ivalent, PF, (Flucelvax) 03/12/2024 Seasonal Influenza, PF, 6 M & above, IM , (FluLaval or Fluzone) 05/02/2022 Seasonal Influenza, Quadriva lent, No Preserve, IM 03/18/2020,03/18/2019,05/14/2018,03/2016 Seasonal Influenza, Trivalen t, Adjuvanted, 65+ YRS, PF, (Fluad) 03/14/2023 TDAP (age 10 and older)(Boostrix) 08/17/2021 TDAP, Age 7 and older, IM (Adacel) 08/28/2010 Varicella Zoster Vaccine (Adult) 10/28/2013 Zoster Vaccine Recombinant (Shingrix) 02/19/2020 ,12/10/2019 documented as of this encounter Social History Tobacco Use Types Packs/Day Years Used Date Smoking Tobacco: Former Cigarettes 0 12/06/1972 - 12/07/1979 Smokeless Tobacco: Never Alcohol Use Standard Drinks/Week Comments Not Currently 0 (1 standard drink = 0.6 oz pur e alcohol) rare PHQ-2 Answer Date Recorded PHQ Adult Total Score 0 12/25/2023 Hunger Vital Sign Answer Date Recorded Worried About Running Out of Food in the Last Ye ar Never true 05/21/2019 Ran Out of Food in the Last Year Never true 05/21/2019 Sex and Gender Information Value Date Recorded Sex Assigned at Male 07/30/2019 9:01 AM EST Legal Sex Male 5:56 AM EST Gender Identity Male 07/30/2019 9:01 AM EST Sexual Orientation Choose not to disclose 2019 9:01 AM EST 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 Not on file Not on file documented as of this encounter Plan of Treatment Upcoming Encounters Date Type Department Care Team (Late st Contact Info) Description 12/24/2024 4:20 PM EDT Office Visit Family Practice [facility] [address] [place] [address] Bakari Jones, DO [address] [place] [address] 02/03/2025 3:30 PM EDT Office Visit Cardiology, [facility] [address] [place] [address] Tesfaye Merritt, DO [address] [place] [address] Scheduled Procedures Name Priority Associated Diagnoses Date/Ti me COLONOSCOPY FLEXIBLE PROXIMAL DIAGNOSTIC Recall History of colon polyps Health Maintenance Due Date Last Done Comments Cologuard 1998 Sigmoidoscopy 1998 Fecal Occult Blood Test 05/25/2006 05/25/2005 COVID-19 Vaccine ( season) 2024 03/12/2024, 05/17/2023, 05/02/2022, Additional history exists Depression Screening 12/24/2024 12/25/2023 GFR 05/11/2025 05/11/2024, 09/2022, 10/15/2022, Additional history exists HbA1c 05/11/2025 05/11/2024, 10/06, 08/18/2021, Additional history exists Colonoscopy 08/31/2026 08/31/2021, 08/09, 06/09/2010 Colorectal Cancer Screening 08/31/2026 Albumin/Creatinine Ratio 05/11/2027 05/11/2024, 10/06 Lipid Panel 05/11/2029 05/11/2024, 10/06, 08/18/2021, Additional history exists DTap/Tdap Vaccines (3 - Td or Tdap) 08/17/2031 08/17/2021, 08/28/2010, 04/13/2004, Additional history exists AAA Screening Completed 11/26/2018 Zoster Vaccines Completed 02/19/2020, 0610/2019, 10/28/2013 Pneumococcal Vaccine: 50+ Years Completed 09/16/2020, 05/21/2019, 04/07/2001 RETIRED - COLONOSCOPY-EVERY 5 YRS AGES 18-100 Discontinued 08/31/2021, 08/31/2021, 06/09/2010 Influenza Vaccine (FLU shot) Completed 03/12/2024, 03/14/2023, 05/02/2022, Additional history exists HPV (Gardasil) Vaccine Aged Out No lo nger eligible based on patient's age to complete this topic Hepatitis B Vaccine Aged Out No longe r eligible based on patient's age to complete this topic MENINGOCOCCAL (MENACTRA/MENVEO) Aged Out No longer eligible based on patient's age to complete this topic documented as of this encounter Medical Devices Not on filedocumented as of this encounter Care Teams Associate Professor Of Physics Relationship Specialty Start Date End Date Bakari Jones DO [address] [place] [address] PCP - General Family Medicine 04/01/18 documented as of this encounter
--- NOTE | 2024-08-03 13:07 | Discharge Summary ---
Date of Service August 03, 2024 Admission HPI (Per Admitting) . 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 Got a long history of bilateral knee pain discomfort of it [facility] the [facility]. He was planning to have his knee fixed by Dr. Ann in [place] but apparently he had to leave town for some family issues. Has had extensive conservative treatment including injections which have become less successful. He is ready to proceed with right knee replacement. Admission Exam (Per Admitting) . Physical examination was a pleasant middle-age male. Exam pretty good health. Examination both [id number] patient ambulates independently. Examination of the right knee reveals some bony prophy. Good varus alignment to his knee. Small knee effusion. He is tender over the medial joint line. Range of motion about 5-1 20. No instability. Examination left knee reveals a similar varus alignment. Mild tenderness. Small knee effusion. Range of motion 5-1 25. No instability. No pain with hip motion. Principal Diagnosis Same as "Discharge Diagnosis" noted below under Discharge Instructions. Discharge Data Procedures Performed Operation Date: 07/30/24 10:40 Actual Procedures p Right Total Knee Arthroplasty(Right) - Chauncey Brandt MD Ordered Studies 07/30/24 05:00 US - OR guided needle placemen Routine Hospital Course (1) Status post right knee replacement: This is a 69 year old patient admitted on 07/30/24 and underwent total knee arthroplasty. He tolerated the procedure well and there were no complications. Transferred to the PACU post op and later to the orthopedic floor for further care. He was given ancef for antibiotic prophylaxis. He was also given MEHRDAD stockings, SCDs, and xarelto for DVT prophylaxis. Hemoglobin, hematocrit, and vital signs were monitored during his hospital stay and remained stable. Did not require any blood transfusions. There were no complications during his hospital stay. By post op day #1 the patient was tolerating a regular diet, pain was reasonably controlled with oral pain medicine, and he was participating in physical therapy. On post op day #1 the patient was discharged home and set up with home health care. He was given printed discharge instructions including prescriptions for extra strength tylenol, xarelto, cefadroxil, zofran, senokot, flomax, and oxycodone. Continue physical therapy, weight bearing as tolerated. Continue MEHRDAD stockings. Follow up approximately 2 weeks post op or sooner if there are problems or concerns. Discharge Plan Discharge Items Patient Disposition: Home - Home Health Services Reason For Visit: Right Knee Osteoarthritis Discharge Diagnosis: Right Knee Replacement Activity: Per Instructions section Weightbearing: Full weightbearing Non-emergency contact: Surgeon Call non-emergency contact if: you have any medication questions Follow-up/Referrals: Bakari Jones, [Primary Care Provider] - Diet: Regular Addtl Attending Provider Instructions: ACTIVITY RECOMMENDATIONS: Diet: * You may resume previous diet. Physical Therapy: * You will go to physical therapy three times each week for four to six weeks after your surgery in order to regain your knee range of motion and to retrain your knee to work properly. * It is just as important to make sure you are getting your knee perfectly straight as it is to regain your knee bend. * Taking a pain pill an hour before therapy can help you have a more productive and comfortable therapy session. Home Exercise: * You were shown a series of exercises (heel props, heel slides, etc.) in the hospital. Do these exercises three to four times each day including the exercises you were shown in physical therapy. Walking: * Get up and walk several times each day. For the first four weeks, try not to stand or walk for more than one hour at a time. If you do stand or walk for more than one hour, you will not hurt anything, but your knee and leg will likely swell. * As you feel comfortable, you may change from the walker or crutches to a cane and then to independent walking. MEDICATIONS: New Medicine: * You will likely be taking one or more of these medications: 1. Oxycodone - A quick and shorter-acting pain medication. Take one to two tablets every six hours to lessen your pain. 2. Xarelto - Thins your blood to lessen the chance of forming a blood clot. * The most common side effects of pain medicine and iron are nausea and constipation. If nausea or constipation is too much of a problem or if you have any questions about your new medicines or doses, call [facility] at . We will try to help you manage these issues. "VERY IMPORTANT TO READ AND REVIEW" Pain: * The immediate post-operative period after knee replacement surgery is often quite painful. * You are given a prescription for pain medicine. You should take it, as directed, when you need it, especially before physical therapy and before going to bed. Pain that interferes with sleep is very common and can last several months. * You will likely need pain medicine for the first four to six weeks. It will not stop all of the pain. The pain will lessen and as you feel better, you may change to milder pain medicine such as Tylenol. * The most common side effects of pain medicine are nausea and constipation, so don't take more than you need. SPECIAL CARE INSTRUCTIONS: TEDs/Elastic Stockings: * The white elastic stockings help limit swelling and prevent blood clots from forming in your legs. The more you wear them, the more they work. * Wear them for six weeks after knee replacement surgery and four weeks after partial knee replacement. Incision Site Care: * Remove dressing postoperative day 2 and then shower. Keep direct shower pressure off the incision site. * After showering, cover dexter with dry gauze and change daily or more frequently if the dressing is getting saturated with drainage. * Use the MEHRDAD stockings to hold dressing in place. DO NOT apply tape on the skin. * May completely stop using bandage if wound is dry and no drainage * [place] are removed between 2 and 3 weeks post-op. If your follow-up appointment is made before 2 weeks, please have your appointment re- scheduled. It is too early to remove the dexter. Prevention of Infection: * Take antibiotics one hour before any dental cleaning, dental work, urological procedure, gastrointestinal procedure or any invasive surgery in order to prevent your new joint from getting infected. * You may get the antibiotics from the doctor performing the procedure or you may call our office at [phone] before and we will call in a prescription to the pharmacy of your choice. Things to Watch For: * Drainage from the incision site that occurs more than one week after your surgery. * Severely increased knee/leg pain or swelling. * Increased redness at the incision site. * Fever above 102 degrees Fahrenheit. * Unusual chest pain or shortness of breath. * Unusual pain or burning with urination. Call [facility] at [phone] with any of the above problems or if you have any questions about your medicines or recovery. FOLLOW UP VISIT: Make an appointment to see your doctor for approximately two weeks after surgery for a progress check and staple removal by calling the office at [phone]. Pending Studies at Discharge: No Stand-Alone Forms: [facility] [place] [facility], Smoking Cessation Medications and DC Order Prescriptions: Continued oxycodone 5 mg tablet 5 - 10 mg PO Q6 PRN (Reason: pain) Qty: 40 0RF Rx Instructions: Take as needed for pain ondansetron 4 mg tablet,disintegrating 4 mg PO Q8 PRN (Reason: nausea) Qty: 20 1RF Rx Instructions: Take as needed for nausea sennosides [Senokot] 8.6 mg tablet 8.6 mg PO BID 14 Days Qty: 28 0RF Rx Instructions: Take two times a day to prevent/treat constipation acetaminophen [Tylenol Extra Strength] 500 mg tablet 1,000 mg PO TID 30 Days Qty: 180 0RF Rx Instructions: Take 3 times per day to lessen pain. cefadroxil 500 mg capsule 500 mg PO BID 7 Days Qty: 14 0RF Rx Instructions: Take 1 cap twice a day to prevent infection tamsulosin [Flomax] 0.4 mg capsule 0.4 mg PO DAILY Qty: 7 0RF Rx Instructions: Begin night BEFORE surgery to prevent urinary retention lisinopril-hydrochlorothiazide 20-12.5 mg Tablet 1 tab PO QAM simvastatin 20 mg Tablet 20 mg PO PM metoprolol succinate 25 mg Tablet Extended Release 24 Hr 25 mg PO QPM Xarelto 20 mg Tablet 20 mg PO PM Rx Instructions: must administer with evening meal metoprolol succinate 50 mg Capsule,Sprinkle,Er 24hr 50 mg PO QAM vitamin B complex Capsule 1 cap PO QAM cholecalciferol (vitamin D3) [Vitamin D3] 25 mcg (1,000 unit) Capsule 25 mcg PO BID vitamin A-vitamin C-vit E-min Tablet 1 tab PO QAM coQ10 (ubiquinol) 200 mg Capsule 200 mg PO QPM Profocus 1 tab PO QAM Prostate Plus 1 tab PO QAM biotin 10,000 mcg Capsule 10,000 mcg PO BID docosahexaenoic acid-epa Capsule 1 cap PO BID melatonin 5 mg Tablet 5 mg PO HS PRN (Reason: Sleep) Probiotic 1 cap PO BID Cranberry Gummy 1 gummy PO DAILY Admission Data Admit Date/Time: 07/30/24 12:20 Attending Provider: Chauncey Brandt Admit Provider: Chauncey Brandt Primary Care Provider: Bakari Jones Other Providers: [facility],Home Health; [facility] Other Interventions: Discharge Summary Assessment (RN) Last Done: 07/31/24 09:35
== END 2024-07-31 11:00 | disposition home health service (06) ==
LOC: 3N 08:10 → ASU 08:10
DX: E78.5 Hyperlipidemia, unspecified; Z79.899 Other long term (current) drug therapy; Z79.01 Long term (current) use of anticoagulants; Z88.0 Allergy status to penicillin; I48.91 Unspecified atrial fibrillation; Z87.891 Personal history of nicotine dependence; M17.11 Unilateral primary osteoarthritis, right knee; I10 Essential (primary) hypertension; N40.0 Benign prostatic hyperplasia without lower urinary tract symptoms